=== PATIENT | female | born 1965 | race African-American/Black ===

== ENCOUNTER 2020-12-29 18:11 | Emergency (ER) | payer MEDICAID ==
[~2020-12-29] VITALS: Ht 160 cm; Wt 90.0 kg
[~2020-12-29 18:11] MED LIST: NONE REPORTED
[2020-12-29] MEDS ORDERED: PETR5OIN3 TP (19:36)
[2020-12-29 20:07] VITALS: BP 126/81
== END 2020-12-29 20:09 | disposition home or self-care (01) ==
LOC: ER 18:11
DX: S30.814A Abrasion of vagina and vulva, initial encounter (principal); S70.312A Abrasion, left thigh, initial encounter; S70.311A Abrasion, right thigh, initial encounter; F41.9 Anxiety disorder, unspecified; L30.9 Dermatitis, unspecified; X58.XXXA Exposure to other specified factors, initial encounter; Y93.9 Activity, unspecified; Y92.9 Unspecified place or not applicable; Z88.0 Allergy status to penicillin
CPT/HCPCS: 99281